=== PATIENT | female | born 1950 | race Caucasian/White ===

== ENCOUNTER 2018-09-21 17:00 | Emergency (ER) | payer MEDICARE ==
[~2018-09-21] VITALS: Ht 170.2 cm; Wt 87.5 kg
[2018-09-21] MEDS ORDERED: IBUPROFEN 600 MG TAB PO NR (17:39)
--- NOTE | 2018-09-21 19:53 | Diagnostic Imaging Report ---
EXAMINATION: CHEST 2 VIEWS INDICATION: ^Fall, rule out fracture ^[id number] ^[id number] COMPARISON: None FINDINGS: PA and lateral views TUBES and LINES: None. LUNGS: Lungs are well inflated. Linear scarring in both lung bases. There is no evidence of pneumonia or pulmonary edema. PLEURA: No pleural effusion or pneumothorax. HEART AND MEDIASTINUM: The cardiomediastinal silhouette is unremarkable. BONES AND SOFT TISSUES: No acute osseous lesion. Few surgical clips overlying the peripheral right hemithorax. UPPER ABDOMEN: No free air under the diaphragm. IMPRESSION: No acute thoracic abnormality. Signed by: Dr. Amy Aponte M.D. on 09/21/2018 7:49 PM
--- NOTE | 2018-09-21 19:53 | Diagnostic Imaging Report ---
THORACIC SPINE X-RAY - 4 VIEWS HISTORY: ^Fall, rule out fracture ^[id number] ^[id number] COMPARISON: None available. FINDINGS: Bones: No acute displaced fracture. Osseous alignment is within normal limits. Joints: Mild multilevel degenerative changes of the thoracic spine. Soft tissues: Surgical clips overlying the lower cervical spine. IMPRESSION: No acute radiographic abnormality. Signed by: Dr. Amy Aponte M.D. on 09/21/2018 7:50 PM
--- NOTE | 2018-09-21 19:55 | Diagnostic Imaging Report ---
Cervical Spine, 5 views HISTORY: Trauma. COMPARISON: None. FINDINGS: Limited sensitivity for detection of subtle fractures and ligamentous abnormalities. On the lateral view, the cervical spine is visualized from the skull base to T1. The alignment is normal. Incidental bilateral short cervical ribs. No acute displaced fracture involving the visualized cervical spine. Disc Spaces and Uncovertebral Joints: Unremarkable. Facets: The facet joints are unremarkable. IMPRESSION: No acute radiographic abnormality. Signed by: Dr. Amy Aponte M.D. on 09/21/2018 7:52 PM
[2018-09-21] MEDS ORDERED: TYLENOL WITH C1 EACH PO (20:51)
[2018-09-21 21:15] VITALS: BP 136/66
== END 2018-09-21 21:00 | disposition home or self-care (01) ==
LOC: ER 17:00
DX: M54.6 Pain in thoracic spine (principal); S23.3XXA Sprain of ligaments of thoracic spine, initial encounter; S16.1XXA Strain of muscle, fascia and tendon at neck level, initial encounter; S46.811A Strain of other muscles, fascia and tendons at shoulder and upper arm level, right arm, initial encounter; W18.30XA Fall on same level, unspecified, initial encounter; Y92.008 Other place in unspecified non-institutional (private) residence as the place of occurrence of the external cause; I10 Essential (primary) hypertension; J44.9 Chronic obstructive pulmonary disease, unspecified; Z85.3 Personal history of malignant neoplasm of breast
CPT/HCPCS: 71046; 72050; 72072; 99283

== ENCOUNTER 2020-12-15 23:48 | Emergency (ER) | payer MEDICARE, OTHER ==
[~2020-12-15] VITALS: Ht 170.2 cm; Wt 87.5 kg
[~2020-12-15 23:48] MED LIST: TYLENOL WITH C1 EACH PO
[2020-12-16 00:37] LABS: BASOPHILS # (AUTO) 0.1 (0.0-0.1); BASOPHILS % 0.5 % (0.0-1.0); EOSINOPHILS # (AUTO) 0.3 (0.0-0.4); EOSINOPHILS % 2.3 % (0.0-6.0); HEMATOCRIT 44.7 % (34.2-44.1); HEMOGLOBIN 14.6 g/dL (12.0-16.0); LYMPHOCYTES # (AUTO) 3.1 (1.0-3.2); MEAN CORPUSCULAR HEMOGLOBIN 29.4 pg (28-32); MEAN CORPUSCULAR HGB CONC 32.7 g/dL (31-35); MEAN CORPUSCULAR VOLUME 90.1 fL (81-99); MONOCYTES # (AUTO) 0.9 (0.2-0.8); MONOCYTES % 6.8 % (4.4-11.3); NEUTROPHILS # (AUTO) 8.1 (2.1-6.9); NEUTROPHILS % 64.7 % (38.7-80.0); PLATELET COUNT 313 x10e3/uL (140-360); RED BLOOD COUNT 4.96 x10e6/uL (3.6-5.1); RED CELL DISTRIBUTION WIDTH 13.2 % (11.7-14.4)
[2020-12-16 00:55] LABS: ALBUMIN 3.5 g/dL (3.5-5.0); ALBUMIN/GLOBULIN RATIO 1.1 (0.8-2.0); ANION GAP 16.6 mmol/L (8-16); CALCIUM 10.2 mg/dL (8.4-10.2); CREATININE, SERUM 0.79 mg/dL (0.57-1.11); POTASSIUM 3.6 mmol/L (3.5-5.1)
[2020-12-16] MEDS ORDERED: AZITHROMYCIN 250 MG TAB PO ONE (01:45)
[2020-12-16] MEDS ORDERED: AZITHROMYCIN 250 MG TAB ONE (01:50)
[2020-12-16 02:11] LABS: CREATINE KINASE MB 1.5 ng/mL (0-5.0)
[2020-12-16 02:39] VITALS: BP 139/75
[2020-12-16] MEDS ORDERED: PREDNISONE20 MG PO (02:42)
== END 2020-12-16 02:53 | disposition home or self-care (01) ==
LOC: ER 23:52
DX: R09.02 Hypoxemia (principal); J44.9 Chronic obstructive pulmonary disease, unspecified; I10 Essential (primary) hypertension; Z20.822 Contact with and (suspected) exposure to COVID-19; Z85.3 Personal history of malignant neoplasm of breast; F17.210 Nicotine dependence, cigarettes, uncomplicated
CPT/HCPCS: 36415; 71045; 80053; 82550; 82553; 83605; 83880; 84484; 85025; 87040; 99284; U0002

== ENCOUNTER 2022-07-23 19:10 | Emergency (ER) | payer MEDICARE, OTHER ==
[~2022-07-23] VITALS: Ht 167.6 cm; Wt 72.6 kg
[~2022-07-23 19:10] MED LIST changes: +ALPRAZOLAM0.25 MG PO; +FENOFIBRATE145 MG PO; +FLONASE ALLERG9.9 ML; +HYDROCHLOROTHIA25 MG PO; +LEVOFLOXACIN250 MG PO; +LEVOTHYROXINE50 MCG PO; +LIPITOR10 MG PO; +NICODERM CQ1 EAC1 TOP; +NIFEDIPINE ER30 M1 PO; +PANTOPRAZOLE SO40 MG PO; +PREDNISONE20 MG PO; +PROVENTIL HFA6.7 GM INH; +SODIUM CHLORIDE FLUSH 10 ML SYR IV PRN; +SYNTHROID100 MCG PO; +THEO-24200 MG PO; +ZESTRIL20 MG PO; +[UNRECOGNIZED DRUG - OTHER] INH
[2022-07-23 19:50] LABS: BASOPHILS % 0.3 % (0.0-1.0); EOSINOPHILS # (AUTO) 0.1 (0.0-0.4); EOSINOPHILS % 1.3 % (0.0-6.0); HEMATOCRIT 48.3 % (34.2-44.1); HEMOGLOBIN 15.5 g/dL (12.0-16.0); LYMPHOCYTES # (AUTO) 4.5 (1.0-3.2); MEAN CORPUSCULAR HEMOGLOBIN 29.8 pg (28-32); MEAN CORPUSCULAR HGB CONC 32.1 g/dL (31-35); MEAN CORPUSCULAR VOLUME 92.7 fL (81-99); MONOCYTES # (AUTO) 0.7 (0.2-0.8); NEUTROPHILS # (AUTO) 4.6 (2.1-6.9); NEUTROPHILS % 45.9 % (38.7-80.0); PLATELET COUNT 264 x10e3/uL (140-360); RED BLOOD COUNT 5.21 x10e6/uL (3.6-5.1); RED CELL DISTRIBUTION WIDTH 13.2 % (11.7-14.4)
[2022-07-23 19:56] LABS: INR 0.86; PROTHROMBIN TIME 12.2 seconds (11.9-14.5)
[2022-07-23 19:57] LABS: PARTIAL THROMBOPLASTIN TIME 28.4 seconds (23.8-35.5)
[2022-07-23 20:03] LABS: ALBUMIN 3.8 g/dL (3.5-5.0); ALBUMIN/GLOBULIN RATIO 1.4 (0.8-2.0); ANION GAP 16.9 mmol/L (8-16); CALCIUM 9.9 mg/dL (8.4-10.2); CREATININE, SERUM 0.65 mg/dL (0.57-1.11); POTASSIUM 3.9 mmol/L (3.5-5.1)
[2022-07-23] MEDS ORDERED: ALBUTEROL SULF 0.083% NEB SOLN 3 ML NEB NEB STA ×2 (20:08)
[2022-07-23] MEDS ORDERED: IPRATROPIUM BROMIDE 0.02% 2.5 ML NEB NEB ONE ×2 (20:15)
[2022-07-23] MEDS ORDERED: ALBUTEROL SULF 0.083% NEB SOLN 3 ML NEB ONE (20:26)
[2022-07-23 22:04] LABS: AMPHETAMINES SCREEN,URINE NEGATIVE (NEGATIVE); PHENCYCLIDINE SCREEN,URINE NEGATIVE (NEGATIVE)
[2022-07-23 22:05] LABS: BENZODIAZEPINES SCREEN,URINE POSITIVE (NEGATIVE)
[2022-07-23 22:06] LABS: CLARITY,URINE CLOUDY (CLEAR); COLOR,URINE YELLOW (YELLOW); KETONES,URINE NEGATIVE (NEGATIVE); LEUKOCYTE ESTERASE ,URINE LARGE (NEGATIVE); NITRITE,URINE NEGATIVE (NEGATIVE); PROTEIN,URINE DIPSTICK 1+ (NEGATIVE)
[2022-07-23 22:07] LABS: URINE UROBILINOGEN 0.2 mg/dL (0.2 - 1)
[2022-07-23 22:13] LABS: BACTERIA,URINE MODERATE /HPF; EPITHELIAL CELLS,URINE FEW /LPF; RBC,URINE 0-5 /HPF (0-5); WBC,URINE (MAN) 21-50 /HPF (0-5)
[2022-07-24] MEDS ORDERED: BENZONATATE100 MG PO (00:27)
[2022-07-24] MEDS ORDERED: ALBUTEROL2.5 MG/3 M INH (00:27)
[2022-07-24] MEDS ORDERED: PREDNISONE20 MG PO (00:27)
[2022-07-24] MEDS ORDERED: IPRATROPIU0.2 MG/1 M INH (00:27)
[2022-07-24 00:44] VITALS: BP 115/78
[2022-07-24] MEDS ORDERED: CEFDINIR300 MG PO (01:09)
== END 2022-07-24 00:59 | disposition home or self-care (01) ==
LOC: ER 19:15
DX: J44.0 Chronic obstructive pulmonary disease with (acute) lower respiratory infection (principal); J20.9 Acute bronchitis, unspecified; J44.1 Chronic obstructive pulmonary disease with (acute) exacerbation; N39.0 Urinary tract infection, site not specified
CPT/HCPCS: 36415; 71045; 80053; 80307; 81001; 83880; 84484; 85025; 85610; 85730; 93005; 94799; 99284; U0002

== ENCOUNTER 2022-08-10 17:11 | Inpatient (IN) | payer MEDICARE ==
[~2022-08-10] VITALS: Ht 167.6 cm; Wt 70.8 kg
[~2022-08-10 17:11] MED LIST changes: +ALBUTEROL2.5 MG/3 M INH; +BENZONATATE100 MG PO; +CEFDINIR300 MG PO; +IPRATROPIU0.2 MG/1 M INH; -SODIUM CHLORIDE FLUSH 10 ML SYR IV PRN
[2022-08-10 17:44] LABS: BASOPHILS % 0.2 % (0.0-1.0); EOSINOPHILS # (AUTO) 0.1 (0.0-0.4); EOSINOPHILS % 1.5 % (0.0-6.0); HEMATOCRIT 44.5 % (34.2-44.1); HEMOGLOBIN 14.8 g/dL (12.0-16.0); LYMPHOCYTES # (AUTO) 2.5 (1.0-3.2); LYMPHOCYTES % 28.4 % (18.0-39.1); MEAN CORPUSCULAR HEMOGLOBIN 29.7 pg (28-32); MEAN CORPUSCULAR HGB CONC 33.3 g/dL (31-35); MEAN CORPUSCULAR VOLUME 89.2 fL (81-99); MONOCYTES # (AUTO) 0.7 (0.2-0.8); MONOCYTES % 7.3 % (4.4-11.3); NEUTROPHILS # (AUTO) 5.5 (2.1-6.9); NEUTROPHILS % 62.3 % (38.7-80.0); PLATELET COUNT 224 x10e3/uL (140-360); RED BLOOD COUNT 4.99 x10e6/uL (3.6-5.1); RED CELL DISTRIBUTION WIDTH 13.1 % (11.7-14.4)
[2022-08-10 18:17] LABS: ALANINE AMINOTRANSFERASE 12 IU/L (0-55); ALBUMIN 3.9 g/dL (3.5-5.0); ALBUMIN/GLOBULIN RATIO 1.4 (0.8-2.0); ALKALINE PHOSPHATASE 40 IU/L (40-150); ANION GAP 13.4 mmol/L (8-16); BLOOD UREA NITROGEN 16 mg/dL (7-26); BUN/CREATININE RATIO 22 (6-25); CALCIUM 10.1 mg/dL (8.4-10.2); CARBON DIOXIDE 30 mmol/L (22-29); CHLORIDE 101 mmol/L (98-107); CREATINE KINASE 56 IU/L (29-168); CREATININE, SERUM 0.74 mg/dL (0.57-1.11); GLUCOSE 112 mg/dL (74-118); POTASSIUM 3.4 mmol/L (3.5-5.1); SODIUM 141 mmol/L (136-145)
[2022-08-10] MEDS ORDERED: IOPAMIDOL 370 MG/ML 100 ML INFUS..BTL INJ ONE (19:09)
[2022-08-10] MEDS ORDERED: ALBUTEROL SULF 0.083% NEB SOLN 3 ML NEB NEB STA (20:30)
[2022-08-10] MEDS ORDERED: ALBUTEROL/IPRATROPIUM 3 ML NEB ONE (20:33)
[2022-08-10] MEDS ORDERED: MAGNESIUM HYDROXIDE 30 ML UDC PO ONE (20:45)
[2022-08-10] MEDS ORDERED: AZITHROMYCIN 250 MG TAB PO STA (20:45)
[2022-08-10] MEDS ORDERED: MINERAL OIL 132 ML BTL PR PRN (20:45)
[2022-08-10] MEDS ORDERED: POTASSIUM CHLORIDE 20 MEQ TAB CR PO PRN (20:45)
[2022-08-10] MEDS ORDERED: MAGNESIUM HYDROXIDE 30 ML UDC PO PRN (20:45)
[2022-08-10] MEDS ORDERED: IPRATROPIUM BROMIDE 0.02% 2.5 ML NEB NEB ONE (20:45)
[2022-08-10] MEDS: ATORVASTATIN 40 MG TAB PO SCH (22:35)
[2022-08-10] MEDS: HEPARIN SOD (PORCINE) 5,000 UNIT/ML VIAL SC SCH (22:35)
[2022-08-10] MEDS: METHYLPREDNISOLONE SOD SUCC 40 MG/ML VIAL 1ML IV SCH (22:36)
[2022-08-11] MEDS: ALBUTEROL SULF 0.083% NEB SOLN 3 ML NEB NEB SCH ×7 (00:02→23:25)
[2022-08-11] MEDS: IPRATROPIUM BROMIDE 0.02% 2.5 ML NEB NEB SCH ×7 (00:02→23:25)
[2022-08-11 01:32] LABS: BASOPHILS % 0.3 % (0.0-1.0); EOSINOPHILS % 0.5 % (0.0-6.0); HEMOGLOBIN 13.3 g/dL (12.0-16.0); LYMPHOCYTES # (AUTO) 1.3 (1.0-3.2); LYMPHOCYTES % 16.5 % (18.0-39.1); MEAN CORPUSCULAR HEMOGLOBIN 29.6 pg (28-32); MEAN CORPUSCULAR HGB CONC 33.3 g/dL (31-35); MEAN CORPUSCULAR VOLUME 89.1 fL (81-99); MONOCYTES # (AUTO) 0.2 (0.2-0.8); MONOCYTES % 2.4 % (4.4-11.3); NEUTROPHILS # (AUTO) 6.1 (2.1-6.9); NEUTROPHILS % 79.9 % (38.7-80.0); PLATELET COUNT 185 x10e3/uL (140-360); RED BLOOD COUNT 4.49 x10e6/uL (3.6-5.1); RED CELL DISTRIBUTION WIDTH 13.1 % (11.7-14.4)
[2022-08-11 01:53] LABS: ALBUMIN 3.5 g/dL (3.5-5.0); ALBUMIN/GLOBULIN RATIO 1.3 (0.8-2.0); ANION GAP 13.8 mmol/L (8-16); CALCIUM 9.5 mg/dL (8.4-10.2); CREATININE, SERUM 0.67 mg/dL (0.57-1.11); POTASSIUM 3.8 mmol/L (3.5-5.1)
[2022-08-11 02:02] LABS: CREATINE KINASE 48 IU/L (29-168)
[2022-08-11] MEDS: METHYLPREDNISOLONE SOD SUCC 40 MG/ML VIAL 1ML IV SCH ×4 (03:00→20:50)
[2022-08-11] MEDS: PEG (High)/E-LYTE SOLN 4,000 ML BTL PO ONE ×2 (03:31→15:24)
[2022-08-11] MEDS ORDERED: ACETAMINOPHEN 325 MG TAB ONE (03:57)
[2022-08-11] MEDS ORDERED: LEVOTHYROXINE SODIUM 125 MCG TAB PO SCH (06:00)
[2022-08-11] MEDS ORDERED: PANTOPRAZOLE SOD 40 MG TABEC PO SCH (07:30)
[2022-08-11] MEDS: TIOTROPIUM 18 MCG INH POWDER INH SCH (08:11)
[2022-08-11] MEDS: FENOFIBRATE 145 MG TAB PO SCH (08:45)
[2022-08-11] MEDS: THEOPHYLLINE 200 MG TABCR PO SCH (08:46)
[2022-08-11] MEDS: CHLORTHALIDONE 25 MG TAB PO SCH (08:46)
[2022-08-11] MEDS: PANTOPRAZOLE SOD 40 MG TABEC PO SCH (08:48)
[2022-08-11] MEDS: PAROXETINE HCL 20 MG TAB PO SCH (08:50)
[2022-08-11] MEDS: HEPARIN SOD (PORCINE) 5,000 UNIT/ML VIAL SC SCH ×2 (08:59→20:57)
[2022-08-11] MEDS ORDERED: NIFEDIPINE CR 30 MG TAB PO SCH (09:00)
[2022-08-11] MEDS ORDERED: LISINOPRIL 20 MG TAB PO SCH (09:00)
[2022-08-11] MEDS: NICOTINE 14 MG/EA PATCH TOP SCH (09:35)
[2022-08-11] MEDS: BENZONATATE 100 MG CAP PO SCH ×3 (09:35→20:51)
[2022-08-11] MEDS: LORATADINE 10 MG TAB PO SCH (09:35)
[2022-08-11] MEDS ORDERED: NICOTINE 21 MG/EA PATCH TOP PRN (13:30)
[2022-08-11 15:09] LABS: CREATINE KINASE 61 IU/L (29-168)
[2022-08-11] MEDS ORDERED: PEG (High)/E-LYTE SOLN 4,000 ML BTL PO ONE ×2 (15:15→21:00)
[2022-08-11] MEDS ORDERED: MAGNESIUM HYDROXIDE 30 ML UDC PO ONE (15:15)
[2022-08-11 16:48] VITALS: BP 145/71
[2022-08-11 17:00] VITALS: BP 145/71
[2022-08-11 20:00] VITALS: BP 122/63
[2022-08-11] MEDS: AZITHROMYCIN 250 MG TAB PO SCH (20:50)
[2022-08-11] MEDS: ATORVASTATIN 40 MG TAB PO SCH (20:50)
[2022-08-11] MEDS ORDERED: ATORVASTATIN 10 MG TAB PO SCH (21:00)
[2022-08-11 21:30] VITALS: BP 122/63
[2022-08-11] MEDS: ACETAMINOPHEN 325 MG TAB PO PRN (21:30)
[2022-08-12] VITALS (8 sets, daily range): BP systolic 89–149; BP diastolic 56–65
[2022-08-12] MEDS: IPRATROPIUM BROMIDE 0.02% 2.5 ML NEB NEB SCH ×6 (03:30→23:15)
[2022-08-12] MEDS: ALBUTEROL SULF 0.083% NEB SOLN 3 ML NEB NEB SCH ×6 (03:30→23:15)
[2022-08-12] MEDS: ACETAMINOPHEN 325 MG TAB PO PRN (05:16)
[2022-08-12] MEDS: METHYLPREDNISOLONE SOD SUCC 40 MG/ML VIAL 1ML IV SCH ×3 (05:39→21:02)
[2022-08-12] MEDS: LEVOTHYROXINE SODIUM 112 MCG TAB PO SCH (05:39)
[2022-08-12] MEDS: TIOTROPIUM 18 MCG INH POWDER INH SCH (07:31)
[2022-08-12] MEDS ORDERED: LISINOPRIL 20 MG TAB PO SCH (09:00)
[2022-08-12] MEDS: NICOTINE 14 MG/EA PATCH TOP SCH (10:35)
[2022-08-12] MEDS: BENZONATATE 100 MG CAP PO SCH ×3 (10:35→21:02)
[2022-08-12] MEDS: THEOPHYLLINE 200 MG TABCR PO SCH (10:35)
[2022-08-12] MEDS: FENOFIBRATE 145 MG TAB PO SCH (10:35)
[2022-08-12] MEDS: PAROXETINE HCL 20 MG TAB PO SCH (10:36)
[2022-08-12] MEDS: HEPARIN SOD (PORCINE) 5,000 UNIT/ML VIAL SC SCH ×2 (10:36→21:09)
[2022-08-12] MEDS: LORATADINE 10 MG TAB PO SCH (10:36)
[2022-08-12] MEDS: CHLORTHALIDONE 25 MG TAB PO SCH (10:36)
[2022-08-12] MEDS: PANTOPRAZOLE SOD 40 MG TABEC PO SCH (10:36)
[2022-08-12] MEDS ORDERED: SODIUM CHLORIDE 0.9% 250ML 250 ML IV SCH (16:15)
[2022-08-12] MEDS ORDERED: SODIUM CHLORIDE 0.9% 250ML 250 ML IV ONE (17:30)
[2022-08-12] MEDS: SODIUM CHLORIDE 0.9% 1000ML 1,000 ML IV SCH (18:42)
[2022-08-12] MEDS: ATORVASTATIN 40 MG TAB PO SCH (21:02)
[2022-08-12] MEDS: AZITHROMYCIN 250 MG TAB PO SCH (21:02)
[2022-08-12] MEDS ORDERED: MAGNESIUM HYDROXIDE 30 ML UDC PO STA (22:12)
[2022-08-13] VITALS (7 sets, daily range): BP systolic 117–139; BP diastolic 60–68
[2022-08-13] MEDS: SODIUM CHLORIDE 0.9% 1000ML 1,000 ML IV SCH ×3 (01:24→15:29)
[2022-08-13] MEDS: ALBUTEROL SULF 0.083% NEB SOLN 3 ML NEB NEB SCH ×6 (03:30→23:35)
[2022-08-13] MEDS: IPRATROPIUM BROMIDE 0.02% 2.5 ML NEB NEB SCH ×6 (03:30→23:35)
[2022-08-13] MEDS: ACETAMINOPHEN 325 MG TAB PO PRN ×2 (05:33→20:13)
[2022-08-13] MEDS: METHYLPREDNISOLONE SOD SUCC 40 MG/ML VIAL 1ML IV SCH ×3 (05:38→20:13)
[2022-08-13] MEDS: LEVOTHYROXINE SODIUM 112 MCG TAB PO SCH (05:59)
[2022-08-13] MEDS: TIOTROPIUM 18 MCG INH POWDER INH SCH (06:00)
[2022-08-13 06:31] LABS: BASOPHILS % 0.2 % (0.0-1.0); EOSINOPHILS % 0.1 % (0.0-6.0); HEMATOCRIT 39.7 % (34.2-44.1); HEMOGLOBIN 12.6 g/dL (12.0-16.0); LYMPHOCYTES # (AUTO) 2.3 (1.0-3.2); LYMPHOCYTES % 25.4 % (18.0-39.1); MEAN CORPUSCULAR HEMOGLOBIN 29.2 pg (28-32); MEAN CORPUSCULAR HGB CONC 31.7 g/dL (31-35); MEAN CORPUSCULAR VOLUME 92.1 fL (81-99); MONOCYTES # (AUTO) 0.5 (0.2-0.8); MONOCYTES % 5.5 % (4.4-11.3); NEUTROPHILS # (AUTO) 6.2 (2.1-6.9); NEUTROPHILS % 68.4 % (38.7-80.0); PLATELET COUNT 205 x10e3/uL (140-360); RED BLOOD COUNT 4.31 x10e6/uL (3.6-5.1)
[2022-08-13] MEDS ORDERED: BISACODYL 5 MG TAB EC PO ONE ×3 (07:00→12:00)
[2022-08-13] MEDS ORDERED: MAGNESIUM HYDROXIDE 30 ML UDC PO ONE ×2 (07:00→08:00)
[2022-08-13 07:09] LABS: ALBUMIN 3.4 g/dL (3.5-5.0); ALBUMIN/GLOBULIN RATIO 1.5 (0.8-2.0); ANION GAP 13.1 mmol/L (8-16); CALCIUM 9.1 mg/dL (8.4-10.2); CREATININE, SERUM 0.66 mg/dL (0.57-1.11); POTASSIUM 4.1 mmol/L (3.5-5.1)
[2022-08-13] MEDS: NIFEDIPINE CR 30 MG TAB PO SCH (09:00)
[2022-08-13] MEDS: NICOTINE 14 MG/EA PATCH TOP SCH (09:00)
[2022-08-13] MEDS ORDERED: NIFEDIPINE CR 30 MG TAB PO SCH (09:00)
[2022-08-13] MEDS: LORATADINE 10 MG TAB PO SCH (09:00)
[2022-08-13] MEDS: THEOPHYLLINE 200 MG TABCR PO SCH (09:01)
[2022-08-13] MEDS: LISINOPRIL 20 MG TAB PO SCH (09:01)
[2022-08-13] MEDS: BENZONATATE 100 MG CAP PO SCH ×3 (09:01→20:13)
[2022-08-13] MEDS: FENOFIBRATE 145 MG TAB PO SCH (09:01)
[2022-08-13] MEDS: PAROXETINE HCL 20 MG TAB PO SCH (09:01)
[2022-08-13] MEDS: HEPARIN SOD (PORCINE) 5,000 UNIT/ML VIAL SC SCH ×2 (09:16→20:18)
[2022-08-13] MEDS ORDERED: CITRATE OF MAGNESIA 300ML BOTTLE PO ONE ×2 (13:00→14:00)
[2022-08-13] MEDS: AZITHROMYCIN 250 MG TAB PO SCH (20:13)
[2022-08-13] MEDS: ATORVASTATIN 40 MG TAB PO SCH (20:13)
[2022-08-14] VITALS (7 sets, daily range): BP systolic 118–155; BP diastolic 63–79
[2022-08-14] MEDS: IPRATROPIUM BROMIDE 0.02% 2.5 ML NEB NEB SCH ×6 (03:35→23:15)
[2022-08-14] MEDS: ALBUTEROL SULF 0.083% NEB SOLN 3 ML NEB NEB SCH ×6 (03:35→23:15)
[2022-08-14] MEDS: LEVOTHYROXINE SODIUM 112 MCG TAB PO SCH (05:00)
[2022-08-14] MEDS: METHYLPREDNISOLONE SOD SUCC 40 MG/ML VIAL 1ML IV SCH ×2 (05:00→17:00)
[2022-08-14] MEDS: TIOTROPIUM 18 MCG INH POWDER INH SCH (06:50)
[2022-08-14] MEDS ORDERED: CITRATE OF MAGNESIA 300ML BOTTLE PO ONE (07:00)
[2022-08-14] MEDS: LUBIPROSTONE 24 MCG CAP PO SCH ×2 (09:00→17:00)
[2022-08-14] MEDS: HEPARIN SOD (PORCINE) 5,000 UNIT/ML VIAL SC SCH ×2 (09:00→21:15)
[2022-08-14] MEDS: LISINOPRIL 20 MG TAB PO SCH (09:35)
[2022-08-14] MEDS: THEOPHYLLINE 200 MG TABCR PO SCH (09:36)
[2022-08-14] MEDS: BENZONATATE 100 MG CAP PO SCH ×3 (09:36→21:13)
[2022-08-14] MEDS: NICOTINE 14 MG/EA PATCH TOP SCH (09:37)
[2022-08-14] MEDS: PAROXETINE HCL 20 MG TAB PO SCH (09:37)
[2022-08-14] MEDS: NIFEDIPINE CR 30 MG TAB PO SCH (09:37)
[2022-08-14] MEDS: FENOFIBRATE 145 MG TAB PO SCH (09:37)
[2022-08-14] MEDS: LORATADINE 10 MG TAB PO SCH (09:40)
[2022-08-14] MEDS: SODIUM CHLORIDE 0.9% 1000ML 1,000 ML IV SCH ×2 (13:26→21:16)
[2022-08-14] MEDS ORDERED: BISACODYL 5 MG TAB EC PO ONE ×2 (14:45→16:00)
[2022-08-14] MEDS: AZITHROMYCIN 250 MG TAB PO SCH (21:13)
[2022-08-14] MEDS: ATORVASTATIN 40 MG TAB PO SCH (21:13)
[2022-08-14] MEDS: ACETAMINOPHEN 325 MG TAB PO PRN (21:13)
[2022-08-15 00:13] VITALS: BP 133/68
[2022-08-15] MEDS: IPRATROPIUM BROMIDE 0.02% 2.5 ML NEB NEB SCH ×4 (03:00→15:00)
[2022-08-15] MEDS: ALBUTEROL SULF 0.083% NEB SOLN 3 ML NEB NEB SCH ×4 (03:00→15:00)
[2022-08-15] MEDS: SODIUM CHLORIDE 0.9% 1000ML 1,000 ML IV SCH (05:23)
[2022-08-15] MEDS: LEVOTHYROXINE SODIUM 112 MCG TAB PO SCH (05:58)
[2022-08-15 06:05] VITALS: BP 151/66
[2022-08-15] MEDS: TIOTROPIUM 18 MCG INH POWDER INH SCH (06:18)
[2022-08-15] MEDS ORDERED: CITRATE OF MAGNESIA 300ML BOTTLE PO ONE (07:00)
[2022-08-15 08:05] VITALS: BP 186/84
[2022-08-15] MEDS ORDERED: ONDANSETRON HCL INJ 2MG/ML 2ML 2 MG/ML VIAL IV PRN (08:45)
[2022-08-15 09:00] VITALS: BP 186/84
[2022-08-15] MEDS: BENZONATATE 100 MG CAP PO SCH (09:00)
[2022-08-15] MEDS: LUBIPROSTONE 24 MCG CAP PO SCH (09:00)
[2022-08-15] MEDS: FENOFIBRATE 145 MG TAB PO SCH (09:00)
[2022-08-15] MEDS: LORATADINE 10 MG TAB PO SCH (09:00)
[2022-08-15] MEDS: PAROXETINE HCL 20 MG TAB PO SCH (09:00)
[2022-08-15] MEDS: NICOTINE 14 MG/EA PATCH TOP SCH (09:01)
[2022-08-15] MEDS: THEOPHYLLINE 200 MG TABCR PO SCH (09:01)
[2022-08-15] MEDS: METHYLPREDNISOLONE SOD SUCC 40 MG/ML VIAL 1ML IV SCH (09:02)
[2022-08-15] MEDS: NIFEDIPINE CR 30 MG TAB PO SCH (09:02)
[2022-08-15] MEDS: LISINOPRIL 20 MG TAB PO SCH (09:03)
[2022-08-15] MEDS ORDERED: NICODERM CQ1 EAC2 TOP (09:33)
[2022-08-15] MEDS ORDERED: LORATADINE10 MG PO (09:33)
[2022-08-15] MEDS ORDERED: MILK OF MA2400 MG/10 PO (09:33)
[2022-08-15] MEDS ORDERED: DOCUSATE SODIU100 MG PO (09:33)
[2022-08-15] MEDS ORDERED: ZITHROMAX500 MG PO (09:33)
[2022-08-15] MEDS ORDERED: SENOKOT8.6 MG PO (09:33)
[2022-08-15] MEDS ORDERED: PREDNISONE20 MG PO (09:33)
[2022-08-15] MEDS: ACETAMINOPHEN 325 MG TAB PO PRN (10:56)
[2022-08-15 11:48] VITALS: BP 168/70
== END 2022-08-15 16:52 | disposition home or self-care (01) | DRG 192 ==
LOC: ER 17:15 → ERHOLD 20:27 → MED/SURG2 08-11 16:38 → OBSVTOIN 08-12 14:44
PROVIDERS: ADMIT Internal Medicine; ATTEND Internal Medicine
DX: J44.1 Chronic obstructive pulmonary disease with (acute) exacerbation (principal); K59.00 Constipation, unspecified; F17.210 Nicotine dependence, cigarettes, uncomplicated; K57.90 Diverticulosis of intestine, part unspecified, without perforation or abscess without bleeding; Z85.3 Personal history of malignant neoplasm of breast; Z90.13 Acquired absence of bilateral breasts and nipples; Z20.822 Contact with and (suspected) exposure to COVID-19; E03.9 Hypothyroidism, unspecified
CPT/HCPCS: 36415; 71045; 74018; 74177; 78580; 80053; 80198; 82550; 82553; 83880; 84443; 84484; 85025; 85379; 93005; 94640; 94664; 94799; 96360; 96361; 99284; A9540; G0378; J1644; J2405; J2920; J7030; J7050; Q9967

== ENCOUNTER 2022-08-19 15:58 | Inpatient (IN) | payer MEDICARE ==
[~2022-08-19] VITALS: Ht 167.6 cm; Wt 70.8 kg
[~2022-08-19 15:58] MED LIST changes: +DOCUSATE SODIU100 MG PO; +LORATADINE10 MG PO; +MILK OF MA2400 MG/10 PO; +NICODERM CQ1 EAC2 TOP; +SENOKOT8.6 MG PO; +ZITHROMAX500 MG PO
[2022-08-19] MEDS ORDERED: NICOTINE 21 MG/EA PATCH TOP PRN (17:15)
[2022-08-19 18:21] VITALS: BP 127/63
[2022-08-19] MEDS: DEXTROSE 5%/0.9% SOD CHL 1,000 ML IV SCH (18:48)
[2022-08-19] MEDS: ALBUTEROL SULF 0.083% NEB SOLN 3 ML NEB NEB SCH (19:00)
[2022-08-19] MEDS: IPRATROPIUM BROMIDE 0.02% 2.5 ML NEB NEB SCH (19:00)
[2022-08-19 19:14] LABS: FREE THYROXINE INDEX 2.9864 (1.4-3.8); THYROID STIMULATING HORMONE 0.345 uIU/mL (0.350-4.940)
[2022-08-19 19:24] VITALS: BP 127/63
[2022-08-19 19:31] VITALS: BP 127/63
[2022-08-19 21:30] VITALS: BP_SYST 107; BP_SYST 120; BP_SYST 124; BP_SYST 127; BP_DIAS 57; BP_DIAS 61; BP_DIAS 64; BP_DIAS 68
[2022-08-20] VITALS (8 sets, daily range): BP systolic 126–148; BP diastolic 52–65
[2022-08-20] MEDS: ALBUTEROL SULF 0.083% NEB SOLN 3 ML NEB NEB SCH ×4 (02:02→19:35)
[2022-08-20] MEDS: IPRATROPIUM BROMIDE 0.02% 2.5 ML NEB NEB SCH ×4 (02:02→19:35)
[2022-08-20 05:22] LABS: BASOPHILS % 0.2 % (0.0-1.0); EOSINOPHILS % 0.3 % (0.0-6.0); HEMATOCRIT 38.4 % (34.2-44.1); HEMOGLOBIN 12.7 g/dL (12.0-16.0); LYMPHOCYTES # (AUTO) 1.7 (1.0-3.2); LYMPHOCYTES % 28.4 % (18.0-39.1); MEAN CORPUSCULAR HEMOGLOBIN 29.5 pg (28-32); MEAN CORPUSCULAR HGB CONC 33.1 g/dL (31-35); MEAN CORPUSCULAR VOLUME 89.3 fL (81-99); MONOCYTES # (AUTO) 0.7 (0.2-0.8); MONOCYTES % 11.1 % (4.4-11.3); NEUTROPHILS # (AUTO) 3.5 (2.1-6.9); NEUTROPHILS % 59.5 % (38.7-80.0); PLATELET COUNT 140 x10e3/uL (140-360); RED CELL DISTRIBUTION WIDTH 12.8 % (11.7-14.4)
[2022-08-20] MEDS: LEVOTHYROXINE SODIUM 112 MCG TAB PO SCH (05:36)
[2022-08-20 05:45] LABS: ANION GAP 10.3 mmol/L (8-16); CALCIUM 8.5 mg/dL (8.4-10.2); CREATININE, SERUM 0.58 mg/dL (0.57-1.11); POTASSIUM 3.3 mmol/L (3.5-5.1)
[2022-08-20] MEDS: SENNOSIDES 8.6 MG TAB PO SCH ×2 (08:55→16:10)
[2022-08-20] MEDS: THEOPHYLLINE 200 MG TABCR PO SCH ×2 (08:55→16:10)
[2022-08-20] MEDS: FENOFIBRATE 145 MG TAB PO SCH (08:56)
[2022-08-20] MEDS: PAROXETINE HCL 20 MG TAB PO SCH (08:56)
[2022-08-20] MEDS: DEXTROSE 5%/0.9% SOD CHL 1,000 ML IV SCH (08:56)
[2022-08-20] MEDS: TRELEGY INH SCH (09:00)
[2022-08-20] MEDS: LISINOPRIL 20 MG TAB PO SCH (09:00)
[2022-08-20] MEDS ORDERED: LISINOPRIL 20 MG TAB PO SCH ×2 (09:00)
[2022-08-20] MEDS ORDERED: POTASSIUM CHLORIDE 20 MEQ TAB CR PO ONE (10:00)
[2022-08-20] MEDS: ASCORBIC ACID 500 MG TAB PO SCH (11:19)
[2022-08-20] MEDS: NICOTINE 21 MG/EA PATCH TOP SCH (11:19)
[2022-08-20] MEDS: BENZONATATE 100 MG CAP PO SCH ×2 (11:19→16:09)
[2022-08-20] MEDS: AZITHROMYCIN 250 MG TAB PO SCH (11:19)
[2022-08-20] MEDS: ZINC SULFATE 220 MG CAP PO SCH (11:55)
[2022-08-20] MEDS: DEXAMETHASONE 4 MG TAB PO SCH (11:56)
[2022-08-20] MEDS: ENOXAPARIN SOD INJ 40 MG/0.4 ML SYR SC SCH (17:08)
[2022-08-20] MEDS: BUDESONIDE 0.25 MG/2 ML NEB NEB SCH (19:35)
[2022-08-21] VITALS (8 sets, daily range): BP systolic 116–156; BP diastolic 41–69
[2022-08-21] MEDS: ALBUTEROL SULF 0.083% NEB SOLN 3 ML NEB NEB SCH ×2 (00:35→06:30)
[2022-08-21] MEDS: IPRATROPIUM BROMIDE 0.02% 2.5 ML NEB NEB SCH ×2 (00:35→06:30)
[2022-08-21] MEDS: DEXTROSE 5%/0.9% SOD CHL 1,000 ML IV SCH (03:34)
[2022-08-21] MEDS: LEVOTHYROXINE SODIUM 112 MCG TAB PO SCH (05:14)
[2022-08-21 05:56] LABS: HEMOGLOBIN 12.6 g/dL (12.0-16.0); LYMPHOCYTES # (AUTO) 0.9 (1.0-3.2); LYMPHOCYTES % 23.2 % (18.0-39.1); MEAN CORPUSCULAR HEMOGLOBIN 29.6 pg (28-32); MEAN CORPUSCULAR HGB CONC 34.1 g/dL (31-35); MEAN CORPUSCULAR VOLUME 87.1 fL (81-99); MONOCYTES # (AUTO) 0.4 (0.2-0.8); MONOCYTES % 11.1 % (4.4-11.3); NEUTROPHILS # (AUTO) 2.4 (2.1-6.9); NEUTROPHILS % 65.4 % (38.7-80.0); PLATELET COUNT 126 x10e3/uL (140-360); RED BLOOD COUNT 4.25 x10e6/uL (3.6-5.1); RED CELL DISTRIBUTION WIDTH 12.9 % (11.7-14.4)
[2022-08-21 06:12] LABS: ANION GAP 11.5 mmol/L (8-16); CALCIUM 8.4 mg/dL (8.4-10.2); CREATININE, SERUM 0.52 mg/dL (0.57-1.11); MAGNESIUM 1.7 MG/DL (1.3-2.1); POTASSIUM 3.5 mmol/L (3.5-5.1)
[2022-08-21] MEDS: BUDESONIDE 0.25 MG/2 ML NEB NEB SCH ×2 (06:30→18:50)
[2022-08-21] MEDS: TRELEGY INH SCH (09:00)
[2022-08-21] MEDS: FENOFIBRATE 145 MG TAB PO SCH (09:49)
[2022-08-21] MEDS: ASCORBIC ACID 500 MG TAB PO SCH (09:49)
[2022-08-21] MEDS: THEOPHYLLINE 200 MG TABCR PO SCH ×2 (09:49→16:27)
[2022-08-21] MEDS: BENZONATATE 100 MG CAP PO SCH ×2 (09:49→16:27)
[2022-08-21] MEDS: AZITHROMYCIN 250 MG TAB PO SCH (09:49)
[2022-08-21] MEDS: SENNOSIDES 8.6 MG TAB PO SCH ×2 (09:50→16:27)
[2022-08-21] MEDS: DEXAMETHASONE 4 MG TAB PO SCH (09:50)
[2022-08-21] MEDS: ZINC SULFATE 220 MG CAP PO SCH (09:50)
[2022-08-21] MEDS: NICOTINE 21 MG/EA PATCH TOP SCH (09:51)
[2022-08-21] MEDS: LISINOPRIL 20 MG TAB PO SCH (09:51)
[2022-08-21] MEDS: PAROXETINE HCL 20 MG TAB PO SCH (09:51)
[2022-08-21] MEDS ORDERED: POTASSIUM CHLORIDE 20 MEQ TAB CR PO ONE (10:30)
[2022-08-21] MEDS: ALBUTEROL/IPRATROPIUM 3 ML NEB INH SCH ×4 (11:00→22:55)
[2022-08-21] MEDS ORDERED: IPRATROPIUM BROMIDE 0.02% 2.5 ML NEB NEB SCH (11:00)
[2022-08-21] MEDS ORDERED: ALBUTEROL SULF 0.083% NEB SOLN 3 ML NEB NEB SCH (11:00)
[2022-08-21] MEDS ORDERED: LACTULOSE SYRUP 20 GM/30 ML UDC PO PRN (11:45)
[2022-08-21] MEDS: DOCUSATE SODIUM 100 MG CAP PO SCH (16:27)
[2022-08-21] MEDS: ENOXAPARIN SOD INJ 40 MG/0.4 ML SYR SC SCH (16:32)
[2022-08-22] VITALS (7 sets, daily range): BP systolic 127–187; BP diastolic 55–98
[2022-08-22] MEDS: ALBUTEROL/IPRATROPIUM 3 ML NEB INH SCH ×6 (02:30→22:50)
[2022-08-22] MEDS: LEVOTHYROXINE SODIUM 112 MCG TAB PO SCH (05:10)
[2022-08-22 06:23] LABS: HEMATOCRIT 36.6 % (34.2-44.1); HEMOGLOBIN 11.9 g/dL (12.0-16.0); LYMPHOCYTES # (AUTO) 1.1 (1.0-3.2); LYMPHOCYTES % 19.1 % (18.0-39.1); MEAN CORPUSCULAR HGB CONC 32.5 g/dL (31-35); MEAN CORPUSCULAR VOLUME 89.1 fL (81-99); MONOCYTES # (AUTO) 0.5 (0.2-0.8); MONOCYTES % 8.2 % (4.4-11.3); NEUTROPHILS # (AUTO) 4.3 (2.1-6.9); NEUTROPHILS % 72.4 % (38.7-80.0); PLATELET COUNT 150 x10e3/uL (140-360); RED BLOOD COUNT 4.11 x10e6/uL (3.6-5.1); RED CELL DISTRIBUTION WIDTH 12.8 % (11.7-14.4)
[2022-08-22 06:36] LABS: ANION GAP 11.6 mmol/L (8-16); CALCIUM 8.6 mg/dL (8.4-10.2); CREATININE, SERUM 0.53 mg/dL (0.57-1.11); MAGNESIUM 1.7 MG/DL (1.3-2.1); POTASSIUM 3.6 mmol/L (3.5-5.1)
[2022-08-22] MEDS: BUDESONIDE 0.25 MG/2 ML NEB NEB SCH ×2 (08:20→19:05)
[2022-08-22] MEDS: TRELEGY INH SCH (09:00)
[2022-08-22] MEDS: NICOTINE 21 MG/EA PATCH TOP SCH (09:12)
[2022-08-22] MEDS: DOCUSATE SODIUM 100 MG CAP PO SCH ×2 (09:12→18:27)
[2022-08-22] MEDS: ASCORBIC ACID 500 MG TAB PO SCH (09:12)
[2022-08-22] MEDS: PAROXETINE HCL 20 MG TAB PO SCH (09:13)
[2022-08-22] MEDS: LISINOPRIL 20 MG TAB PO SCH ×2 (09:13→18:28)
[2022-08-22] MEDS: BENZONATATE 100 MG CAP PO SCH ×2 (09:13→18:28)
[2022-08-22] MEDS: FENOFIBRATE 145 MG TAB PO SCH (09:13)
[2022-08-22] MEDS: SENNOSIDES 8.6 MG TAB PO SCH ×2 (09:13→18:28)
[2022-08-22] MEDS: THEOPHYLLINE 200 MG TABCR PO SCH ×2 (09:13→18:28)
[2022-08-22] MEDS: AZITHROMYCIN 250 MG TAB PO SCH (09:13)
[2022-08-22] MEDS: ZINC SULFATE 220 MG CAP PO SCH (09:13)
[2022-08-22] MEDS: PANTOPRAZOLE SOD 40 MG TABEC PO SCH (09:14)
[2022-08-22] MEDS: DEXAMETHASONE 4 MG TAB PO SCH (09:14)
[2022-08-22] MEDS ORDERED: CITRATE OF MAGNESIA 300ML BOTTLE PO PRN (10:45)
[2022-08-22] MEDS ORDERED: MINERAL OIL 132 ML BTL PR PRN (10:45)
[2022-08-22] MEDS ORDERED: CITRATE OF MAGNESIA 300ML BOTTLE PO ONE (10:45)
[2022-08-22] MEDS: HYDRALAZINE HCL 20 MG/ML VIAL IV PRN (12:28)
[2022-08-22] MEDS: ENOXAPARIN SOD INJ 40 MG/0.4 ML SYR SC SCH (18:27)
[2022-08-22] MEDS: BUDESONIDE/FORMOTEROL 160/4.5MCG INHALER INH SCH (20:00)
[2022-08-23] MEDS: ALBUTEROL/IPRATROPIUM 3 ML NEB INH SCH ×6 (02:45→23:10)
[2022-08-23 04:00] VITALS: BP 122/60
[2022-08-23 06:26] LABS: BASOPHILS % 0.2 % (0.0-1.0); HEMATOCRIT 37.8 % (34.2-44.1); HEMOGLOBIN 12.3 g/dL (12.0-16.0); LYMPHOCYTES # (AUTO) 1.2 (1.0-3.2); LYMPHOCYTES % 21.4 % (18.0-39.1); MEAN CORPUSCULAR HEMOGLOBIN 29.3 pg (28-32); MEAN CORPUSCULAR HGB CONC 32.5 g/dL (31-35); MONOCYTES # (AUTO) 0.5 (0.2-0.8); MONOCYTES % 9.1 % (4.4-11.3); NEUTROPHILS # (AUTO) 3.9 (2.1-6.9); NEUTROPHILS % 68.8 % (38.7-80.0); PLATELET COUNT 183 x10e3/uL (140-360); RED CELL DISTRIBUTION WIDTH 13.1 % (11.7-14.4)
[2022-08-23] MEDS: LEVOTHYROXINE SODIUM 112 MCG TAB PO SCH (06:43)
[2022-08-23 06:49] LABS: ANION GAP 12.1 mmol/L (8-16); CREATININE, SERUM 0.59 mg/dL (0.57-1.11); MAGNESIUM 2.1 MG/DL (1.3-2.1); POTASSIUM 4.1 mmol/L (3.5-5.1)
[2022-08-23] MEDS: BUDESONIDE/FORMOTEROL 160/4.5MCG INHALER INH SCH ×2 (07:12→19:15)
[2022-08-23] MEDS: BUDESONIDE 0.25 MG/2 ML NEB NEB SCH ×2 (07:12→19:15)
[2022-08-23 08:00] VITALS: BP 177/73
[2022-08-23] MEDS: TRELEGY INH SCH (09:00)
[2022-08-23 09:38] VITALS: BP 177/73
[2022-08-23] MEDS: FENOFIBRATE 145 MG TAB PO SCH (10:09)
[2022-08-23] MEDS: NICOTINE 21 MG/EA PATCH TOP SCH (10:09)
[2022-08-23] MEDS: SENNOSIDES 8.6 MG TAB PO SCH ×2 (10:09→16:59)
[2022-08-23] MEDS: PAROXETINE HCL 20 MG TAB PO SCH (10:09)
[2022-08-23] MEDS: PANTOPRAZOLE SOD 40 MG TABEC PO SCH (10:09)
[2022-08-23] MEDS: DEXAMETHASONE 4 MG TAB PO SCH (10:09)
[2022-08-23] MEDS: DOCUSATE SODIUM 100 MG CAP PO SCH ×2 (10:10→16:59)
[2022-08-23] MEDS: AZITHROMYCIN 250 MG TAB PO SCH (10:10)
[2022-08-23] MEDS: ASCORBIC ACID 500 MG TAB PO SCH (10:10)
[2022-08-23] MEDS: BENZONATATE 100 MG CAP PO SCH ×2 (10:10→16:59)
[2022-08-23] MEDS: HYDRALAZINE HCL 20 MG/ML VIAL IV PRN ×2 (10:10→14:36)
[2022-08-23] MEDS: LISINOPRIL 20 MG TAB PO SCH ×2 (10:10→16:59)
[2022-08-23] MEDS: ZINC SULFATE 220 MG CAP PO SCH (10:19)
[2022-08-23] MEDS: THEOPHYLLINE 200 MG TABCR PO SCH ×2 (10:22→17:00)
[2022-08-23 12:00] VITALS: BP 175/79
[2022-08-23 16:00] VITALS: BP 145/67
[2022-08-23] MEDS: ENOXAPARIN SOD INJ 40 MG/0.4 ML SYR SC SCH (17:00)
[2022-08-23 20:00] VITALS: BP 119/88
[2022-08-24] VITALS (7 sets, daily range): BP systolic 122–163; BP diastolic 54–80
[2022-08-24] MEDS: ALBUTEROL/IPRATROPIUM 3 ML NEB INH SCH ×6 (03:05→23:55)
[2022-08-24] MEDS: LEVOTHYROXINE SODIUM 112 MCG TAB PO SCH (05:14)
[2022-08-24] MEDS: BUDESONIDE 0.25 MG/2 ML NEB NEB SCH (06:30)
[2022-08-24] MEDS: BUDESONIDE/FORMOTEROL 160/4.5MCG INHALER INH SCH ×2 (06:56→19:40)
[2022-08-24] MEDS: SENNOSIDES 8.6 MG TAB PO SCH ×3 (09:00→16:51)
[2022-08-24] MEDS: DOCUSATE SODIUM 100 MG CAP PO SCH ×3 (09:00→16:51)
[2022-08-24] MEDS: TRELEGY INH SCH (09:00)
[2022-08-24] MEDS: ZINC SULFATE 220 MG CAP PO SCH (09:18)
[2022-08-24] MEDS: ASCORBIC ACID 500 MG TAB PO SCH (09:18)
[2022-08-24] MEDS: FENOFIBRATE 145 MG TAB PO SCH (09:18)
[2022-08-24] MEDS: THEOPHYLLINE 200 MG TABCR PO SCH ×2 (09:18→16:12)
[2022-08-24] MEDS: BENZONATATE 100 MG CAP PO SCH ×2 (09:19→16:11)
[2022-08-24] MEDS: LISINOPRIL 20 MG TAB PO SCH ×2 (09:19→16:11)
[2022-08-24] MEDS: DEXAMETHASONE 4 MG TAB PO SCH (09:19)
[2022-08-24] MEDS: NICOTINE 21 MG/EA PATCH TOP SCH (09:20)
[2022-08-24] MEDS: PANTOPRAZOLE SOD 40 MG TABEC PO SCH (09:20)
[2022-08-24] MEDS: PAROXETINE HCL 20 MG TAB PO SCH (09:20)
[2022-08-24] MEDS: ENOXAPARIN SOD INJ 40 MG/0.4 ML SYR SC SCH (16:51)
[2022-08-25 00:59] VITALS: BP 164/76
[2022-08-25] MEDS: ALBUTEROL/IPRATROPIUM 3 ML NEB INH SCH ×4 (03:05→13:50)
[2022-08-25 04:00] VITALS: BP 166/67
[2022-08-25] MEDS: LEVOTHYROXINE SODIUM 112 MCG TAB PO SCH (05:31)
[2022-08-25 07:55] VITALS: BP 162/73
[2022-08-25 08:00] VITALS: BP 162/73
[2022-08-25] MEDS: BUDESONIDE/FORMOTEROL 160/4.5MCG INHALER INH SCH (08:20)
[2022-08-25] MEDS: FENOFIBRATE 145 MG TAB PO SCH (09:14)
[2022-08-25] MEDS: BENZONATATE 100 MG CAP PO SCH (09:14)
[2022-08-25] MEDS: DOCUSATE SODIUM 100 MG CAP PO SCH (09:15)
[2022-08-25] MEDS: ZINC SULFATE 220 MG CAP PO SCH (09:15)
[2022-08-25] MEDS: PAROXETINE HCL 20 MG TAB PO SCH (09:15)
[2022-08-25] MEDS: DEXAMETHASONE 4 MG TAB PO SCH (09:15)
[2022-08-25] MEDS: SENNOSIDES 8.6 MG TAB PO SCH (09:15)
[2022-08-25] MEDS: LISINOPRIL 20 MG TAB PO SCH (09:15)
[2022-08-25] MEDS: THEOPHYLLINE 200 MG TABCR PO SCH (09:15)
[2022-08-25] MEDS: NICOTINE 21 MG/EA PATCH TOP SCH (09:15)
[2022-08-25] MEDS: PANTOPRAZOLE SOD 40 MG TABEC PO SCH (09:15)
[2022-08-25] MEDS: ASCORBIC ACID 500 MG TAB PO SCH (09:15)
[2022-08-25] MEDS: TRELEGY INH SCH (09:24)
[2022-08-25 11:47] VITALS: BP 171/76
[2022-08-25 12:45] VITALS: BP 151/79
[2022-08-25] MEDS ORDERED: LEVOTHYROXINE112 MCG PO (12:53)
[2022-08-25] MEDS ORDERED: HYDROCHLOROTHIAZIDE 25 MG TAB PO SCH (13:30)
== END 2022-08-25 14:37 | disposition home or self-care (01) | DRG 177 ==
LOC: INTOOBSV 16:57 → MED/SURG2 16:57 → OBSVTOIN 08-22 09:43
PROVIDERS: ADMIT Internal Medicine Pulmonary Disease; ATTEND Internal Medicine Pulmonary Disease
PROC: 02HV33Z Insertion of Infusion Device into Superior Vena Cava, Percutaneous Approach (ICD-10-PCS; principal; 2022-08-22)
PROC: 8E0ZXY6 Isolation (ICD-10-PCS; 2022-08-22)
DX: U07.1 COVID-19 (principal); J12.82 Pneumonia due to coronavirus disease 2019; J96.01 Acute respiratory failure with hypoxia; J15.9 Unspecified bacterial pneumonia; J44.1 Chronic obstructive pulmonary disease with (acute) exacerbation; Z85.3 Personal history of malignant neoplasm of breast; Z90.10 Acquired absence of unspecified breast and nipple; Z99.81 Dependence on supplemental oxygen
CPT/HCPCS: 36415; 71045; 71046; 80048; 80198; 83735; 84436; 84443; 84479; 85025; 93005; 94799; G0378; J0696; J1650; J7042